=== PATIENT | female | born 1995 | race Two or more races ===

== ENCOUNTER 2020-07-25 12:03 | Emergency (ER) | payer OTHER ==
[~2020-07-25] VITALS: Ht 157.5 cm; Wt 90.7 kg
[2020-07-25] MEDS ORDERED: IRON236 MG (13:10)
[2020-07-25] MEDS ORDERED: PRENA1 TRUE CO1 EACH (13:10)
[2020-07-25] MEDS ORDERED: CONCEPT DHA CA1 EACH PO (16:36)
[2020-07-25] MEDS ORDERED: PEPCID AC20 MG PO (16:36)
[2020-07-25] MEDS ORDERED: ONDANSETRON ODT4 MG SL (16:36)
[2020-07-25] MEDS ORDERED: DUI500 PO (16:36)
== END 2020-07-25 18:09 | disposition home or self-care (01) ==
LOC: ER 12:03
DX: O21.0 Mild hyperemesis gravidarum (principal); O26.851 Spotting complicating pregnancy, first trimester; O36.80X1 Pregnancy with inconclusive fetal viability, fetus 1; Z3A.01 Less than 8 weeks gestation of pregnancy